=== PATIENT | female | born 1950 | race Caucasian/White ===

== ENCOUNTER 2017-10-19 06:34 | Outpatient (CLI) | payer OTHER ==
[~2017-10-19 06:34] MED LIST: ORPH100T PO; ULTRACET PO; VOLTAREN-XR100 MG PO
== END 2017-10-19 06:43 | disposition home or self-care (01) ==
LOC: LAB 06:34
DX: E03.8 Other specified hypothyroidism (principal)

== ENCOUNTER 2018-02-21 07:23 | Outpatient (CLI) | payer OTHER | END 2018-02-21 07:30 | disposition home or self-care (01) | LOC: LAB 07:23 | DX: E03.4 Atrophy of thyroid (acquired) (principal); E78.2 Mixed hyperlipidemia; E11.9 Type 2 diabetes mellitus without complications; I10 Essential (primary) hypertension ==

== ENCOUNTER 2018-09-19 06:42 | Outpatient (CLI) | payer OTHER | END 2018-09-19 06:48 | disposition home or self-care (01) | LOC: LAB 06:42 | DX: E03.8 Other specified hypothyroidism (principal); E11.65 Type 2 diabetes mellitus with hyperglycemia; E03.4 Atrophy of thyroid (acquired); E78.00 Pure hypercholesterolemia, unspecified ==

== ENCOUNTER 2018-09-19 13:36 | Outpatient (CLI) | payer OTHER | END 2018-09-19 13:39 | disposition home or self-care (01) | LOC: SONOGRAMA 13:36 → MAMO-SONO 14:15 | DX: E03.8 Other specified hypothyroidism (principal); E04.1 Nontoxic single thyroid nodule ==

== ENCOUNTER 2018-11-10 14:34 | Outpatient (CLI) | payer OTHER | END 2018-11-10 14:49 | disposition home or self-care (01) | LOC: TOM 14:34 | DX: H92.02 Otalgia, left ear (principal) ==

== ENCOUNTER 2019-03-09 08:04 | Outpatient (CLI) | payer OTHER | END 2019-03-09 08:28 | disposition home or self-care (01) | LOC: LAB 08:04 | DX: E03.8 Other specified hypothyroidism (principal); E11.9 Type 2 diabetes mellitus without complications; E78.00 Pure hypercholesterolemia, unspecified; D64.89 Other specified anemias ==